=== PATIENT | female | born 1990 | race Caucasian/White ===

== ENCOUNTER 2018-01-07 18:04 | Emergency (ER) | payer MEDICAID ==
[~2018-01-07] VITALS: Ht 170.2 cm; Wt 77.3 kg
[~2018-01-07 18:04] MED LIST: NO HOME MEDICATIONS; ULTRAM 50MG TAB50 MG PO; ZOFRAN8 MG PO
[2018-01-07 18:06] VITALS: BP 114/74; TEMP 96.9
[2018-01-07] MEDS ORDERED: ZOLOFT 50MG50 MG PO (18:09)
[2018-01-07] MEDS ORDERED: PEN-VEE K500 MG PO (18:38)
[2018-01-07] MEDS ORDERED: ULTRAM 50MG TAB50 MG PO (18:38)
[2018-01-07 18:59] VITALS: PULSE 66
== END 2018-01-07 18:53 | disposition home or self-care (01) ==
LOC: COL.ER 18:04
DX: K02.9 Dental caries, unspecified (principal); K05.10 Chronic gingivitis, plaque induced